=== PATIENT | female | born 2000 | race African-American/Black ===

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

== ENCOUNTER 2020-01-18 19:36 | Emergency (ER) | payer BC, OTHER ==
[~2020-01-18] VITALS: Ht 167.6 cm; Wt 56.8 kg
[~2020-01-18 19:36] MED LIST changes: +ULTRAM50 M1 PO
[2020-01-18 20:41] LABS: URINE BILIRUBIN - DIPSTICK NEGATIVE (NEGATIVE); URINE BLOOD DIPSTICK NEGATIVE (NEGATIVE); URINE COLOR YELLOW; URINE GLUCOSE - DIPSTICK NEGATIVE (NEGATIVE); URINE KETONE NEGATIVE (NEGATIVE); URINE LEUK ESTERASE NEGATIVE (Negative); URINE NITRITE - DIPSTICK NEGATIVE (Negative); URINE PROTEIN - DIPSTICK NEGATIVE (NEG-TRACE); URINE SPECIFIC GRAVITY >=1.030
[2020-01-18 20:42] LABS: URINE CLARITY HAZY
[2020-01-18 23:05] VITALS: BP 118/74
== END 2020-01-18 23:05 | disposition home or self-care (01) | DRG 563 ==
LOC: ED 19:36
DX: S29.012A Strain of muscle and tendon of back wall of thorax, initial encounter (principal); V47.5XXA Car driver injured in collision with fixed or stationary object in traffic accident, initial encounter

== ENCOUNTER 2020-09-07 17:18 | Emergency (ER) | payer BC ==
[~2020-09-07] VITALS: Ht 167.6 cm; Wt 50.0 kg
[2020-09-07 19:09] VITALS: BP 131/88
== END 2020-09-07 19:09 | disposition home or self-care (01) | DRG 179 ==
LOC: ED 17:18
DX: U07.1 COVID-19 (principal); R53.1 Weakness; R52 Pain, unspecified

== ENCOUNTER 2020-11-12 12:42 | Emergency (ER) | payer BC ==
[~2020-11-12] VITALS: Ht 167.6 cm; Wt 54.5 kg
[2020-11-12] MEDS ORDERED: BACTROBAN TOP (13:16)
[2020-11-12 13:40] VITALS: BP 136/89
== END 2020-11-12 13:40 | disposition home or self-care (01) | DRG 935 ==
LOC: ED 12:42
PROC: 2W2CX4Z Dressing of Right Lower Arm using Bandage (ICD-10-PCS; principal; 2020-11-12)
PROC: 2W2NX4Z Dressing of Right Upper Leg using Bandage (ICD-10-PCS; 2020-11-12)
DX: T24.211A Burn of second degree of right thigh, initial encounter (principal); T22.111A Burn of first degree of right forearm, initial encounter; T31.0 Burns involving less than 10% of body surface; X12.XXXA Contact with other hot fluids, initial encounter; Y93.G3 Activity, cooking and baking; Y92.000 Kitchen of unspecified non-institutional (private) residence as the place of occurrence of the external cause

== ENCOUNTER 2021-08-28 12:33 | Emergency (ER) | payer BC ==
[~2021-08-28] VITALS: Ht 167.6 cm; Wt 55.0 kg
[~2021-08-28 12:33] MED LIST changes: +BACTROBAN TOP
[2021-08-28 14:36] LABS: MEAN CELL VOLUME 90.5 fL CALC (80.0-100.0); MEAN CORPUSCULAR HGB 28.5 pG CALC (26.0-32.0); MEAN CORPUSCULAR HGB CONC 31.5 g/dL CAL (32.0-36.0); NEUT# 1.41 thou/uL (2.00-7.15); RED BLOOD COUNT 4.31 mill/uL (4.20-5.60)
[2021-08-28 14:42] LABS: HEMOGLOBIN 12.3 g/dl (12.0-16.0)
[2021-08-28 14:46] LABS: ANION GAP 10 (6-22 (CALC)); BUN 10 mg/dL (7-17); BUN/CREATININE RATIO 13 (12-20 (CALC)); CARBON DIOXIDE 28 mmol/l (22-30); CHLORIDE 107 mmol/l (95-108); CREATININE 0.8 mg/dL (0.5-1.0); GFR > 60 ML/MIN (>=60 (CALC)); GFR FOR AFR.AMER. > 60 ML/MIN (>=60 (CALC)); POTASSIUM 3.5 mmol/l (3.5-5.1); SODIUM 141 mmol/l (137-146)
[2021-08-28] MEDS ORDERED: ZPAK PO (15:01)
[2021-08-28 15:04] VITALS: BP 131/82
== END 2021-08-28 15:15 | disposition home or self-care (01) | DRG 153 ==
LOC: ED 12:33
PROVIDERS: Family Medicine
DX: J06.9 Acute upper respiratory infection, unspecified (principal); F17.210 Nicotine dependence, cigarettes, uncomplicated; Z20.822 Contact with and (suspected) exposure to COVID-19

== ENCOUNTER 2022-05-10 20:47 | Emergency (ER) | payer OTHER ==
[~2022-05-10] VITALS: Ht 167.6 cm; Wt 56.0 kg
[~2022-05-10 20:47] MED LIST changes: +ZPAK PO
[2022-05-10 21:19] LABS: HEMATOCRIT 40.5 % (37.0-47.0); HEMOGLOBIN 12.9 g/dl (12.0-16.0); IMMATURE GRANULOCYTES 0.1 % (0.0-5.0); MEAN CELL VOLUME 91.8 fL CALC (80.0-100.0); MEAN CORPUSCULAR HGB 29.3 pG CALC (26.0-32.0); MEAN CORPUSCULAR HGB CONC 31.9 g/dL CAL (32.0-36.0); NEUT# 2.62 thou/uL (2.00-7.15); RED BLOOD COUNT 4.41 mill/uL (4.20-5.60); RED CELL DISTRI WIDTH 12.9 % (11.5-15.5)
[2022-05-10 21:31] LABS: ALKALINE PHOSPHATASE 54 u/l (38-126); BUN 6 mg/dL (7-17); BUN/CREATININE RATIO 5 (12-20 (CALC)); CHLORIDE 104 mmol/l (95-108); ETHYL ALCOHOL 41 mg/dl (0-30); GFR FOR AFR.AMER. > 60 ML/MIN (>=60 (CALC)); GFR OTHER RACES > 60 ML/MIN (>=60 (CALC)); SODIUM 142 mmol/l (137-146)
[2022-05-10 21:36] VITALS: BP 124/84
[2022-05-10 21:46] VITALS: BP 131/85
[2022-05-10 21:50] LABS: ALBUMIN 5.2 g/dL (3.2-5.0); ANION GAP 23 (6-22 (CALC)); BILIRUBIN, TOTAL 0.8 mg/dL (0.0-1.4); CARBON DIOXIDE 18 mmol/l (22-30); SGOT/AST 30 u/l (14-36)
[2022-05-10 22:00] VITALS: BP 132/101
[2022-05-10 22:15] VITALS: BP 124/81
[2022-05-11] VITALS (27 sets, daily range): BP systolic 138–173; BP diastolic 77–113
[2022-05-11] MEDS ORDERED: KEFLEX500 MG PO (01:43)
[2022-05-11] MEDS ORDERED: TRAMADOL HCL50 MG PO (01:43)
[2022-05-11] MEDS ORDERED: MOTRIN800 MG PO (01:43)
== END 2022-05-11 02:20 | disposition home or self-care (01) | DRG 999 ==
LOC: ED 20:47
PROVIDERS: Family Medicine
PROC: 0HQBXZZ Repair Right Upper Arm Skin, External Approach (ICD-10-PCS; principal; 2022-05-10)
PROC: 0RSJXZZ Reposition Right Shoulder Joint, External Approach (ICD-10-PCS; 2022-05-10)
DX: S43.014A Anterior dislocation of right humerus, initial encounter (principal); S42.251A Displaced fracture of greater tuberosity of right humerus, initial encounter for closed fracture; S51.811A Laceration without foreign body of right forearm, initial encounter; S41.111A Laceration without foreign body of right upper arm, initial encounter; S51.011A Laceration without foreign body of right elbow, initial encounter; S20.419A Abrasion of unspecified back wall of thorax, initial encounter; S29.012A Strain of muscle and tendon of back wall of thorax, initial encounter; T14.8XXA Other injury of unspecified body region, initial encounter; F17.200 Nicotine dependence, unspecified, uncomplicated; V48.5XXA Car driver injured in noncollision transport accident in traffic accident, initial encounter; Z20.822 Contact with and (suspected) exposure to COVID-19

== ENCOUNTER 2022-08-08 21:05 | Emergency (ER) | payer SELFPAY ==
[~2022-08-08] VITALS: Ht 167.6 cm; Wt 59.0 kg
[~2022-08-08 21:05] MED LIST changes: +KEFLEX500 MG PO; +MOTRIN800 MG PO; +TRAMADOL HCL50 MG PO
[2022-08-08] MEDS ORDERED: BACTRIM DS1 TAB PO (23:46)
[2022-08-08] MEDS ORDERED: CEPHALEXIN500 MG PO (23:46)
[2022-08-08] MEDS ORDERED: ULTRAM50 MG PO (23:46)
[2022-08-09 00:19] VITALS: BP 108/62
== END 2022-08-09 00:27 | disposition home or self-care (01) | DRG 603 ==
LOC: ED 21:05
PROC: 0H9DXZZ Drainage of Right Lower Arm Skin, External Approach (ICD-10-PCS; principal; 2022-08-08)
DX: L02.413 Cutaneous abscess of right upper limb (principal)